=== PATIENT | female | born 1975 | race African-American/Black ===

== ENCOUNTER 2019-04-05 06:29 | Day surgery (SDC) | payer MEDICAID ==
[2019-04-05] MEDS ORDERED: CEFAZOLIN 1 GM/50 ML (PMX) 50 ML IVPB (07:00)
[2019-04-05] MEDS ORDERED: SOD CHLORIDE 0.9% 1,000 ML IV (07:00)
[2019-04-05] MEDS ORDERED: LIDOCAINE 2% (SDV) 5 ML INJ (07:48)
[2019-04-05] MEDS ORDERED: PROPOFOL 20 ML (07:48)
[2019-04-05] MEDS ORDERED: MEPERIDINE 100 MG INJ (07:48)
[2019-04-05] MEDS ORDERED: CEFAZOLIN 1 GM INJ ×2 (07:48→07:53)
[2019-04-05] MEDS ORDERED: BUPIVACAINE 0.5%/EPI (SDV) 30 ML INJ (07:49)
[2019-04-05] MEDS ORDERED: HYDROmorphONE 1 MG/5 ML IV SYRINGE IV ×3 (08:00)
[2019-04-05] MEDS ORDERED: ONDANSETRON 4 MG INJ IV (08:00)
[2019-04-05] MEDS ORDERED: OXYCODONE/ACETAMINOPHEN (5/325) TAB PO ×2 (08:00)
[2019-04-05] MEDS ORDERED: MIDAZOLAM 1 MG/ML 2 ML INJ IV (08:00)
[2019-04-05] MEDS ORDERED: FENTAnyl 50 MCG/ML VIAL IV ×2 (08:00)
[2019-04-05] MEDS ORDERED: METOCLOPRAMIDE 10 MG INJ IV (08:00)
[2019-04-05] MEDS ORDERED: MEPERIDINE 25 MG INJ IV (08:00)
[2019-04-05] MEDS ORDERED: DIPHENHYDRAMINE 50 MG INJ IV (08:00)
[2019-04-05] MEDS ORDERED: ONDANSETRON 4 MG INJ (08:01)
[2019-04-05] MEDS ORDERED: METOCLOPRAMIDE 10 MG INJ (08:01)
[2019-04-05] MEDS: BUPIVACAINE 0.5% (SDV) 30 ML INJ (08:23)
[2019-04-05] MEDS: FENTAnyl 50 MCG/ML VIAL IV (09:06)
== END 2019-04-05 11:20 | disposition home or self-care (01) ==
LOC: SDS 06:29
DX: D24.2 Benign neoplasm of left breast (principal); N64.52 Nipple discharge
CPT/HCPCS: 19120